=== PATIENT | female | born 1995 | race Caucasian/White ===

== ENCOUNTER 2016-12-15 21:12 | Emergency (ER) | payer OTHER ==
[2016-12-15 22:10] VITALS: BP 143/79
[2016-12-15] MEDS ORDERED: Albuterol 2.5 MG/3 ML NEB.SOL* (0.083%) INH ONE (22:20)
[2016-12-15] MEDS ORDERED: Ipratropium 0.5MG/2.5ML NEB* 0.5 MG/2.5 ML NEB.SOLN INH ONE (22:20)
--- NOTE | 2016-12-15 22:25 | UC ---
Respiratory Complaint HPI - HPI Summary HPI Summary: 21 yo female with wheezing x 4 days she is on chronic inhaled steroids she is on day four of prednisone (currently 20mg) no f/c - History of Current Complaint Chief Complaint: UCRespiratory Stated Complaint: ASTHMA Time Seen by Provider: 12/15/16 22:13 Hx Obtained From: Patient Hx Last Menstrual Period: 4 wks ago Onset/Duration: Sudden Onset, Lasting Days Timing: Constant Severity Initially: Moderate Severity Currently: Moderate Pain Intensity: 1 Pain Scale Used: 0-10 Numeric Character: Cough: Nonproductive Aggravating Factors: Exertion, Deep Breaths Alleviating Factors: Bronchodilator Associated Signs And Symptoms: Positive: Wheezing - Allergies/Home Medications Allergies/Adverse Reactions: Allergies Allergy/AdvReac Type Severity Reaction Status Date / Time Penicillins Allergy Severe Hives Verified 12/15/16 22:12 Home Medications: Home Medications Fluticasone-Salmeterol 100-50* [Advair Diskus 100-50*] 12/15/16 [History Confirmed 12/15/16] predniSONE TAB* [Deltasone TAB*] 12/15/16 [History Confirmed 12/15/16] PMH/Surg Hx/FS Hx/Imm Hx Endocrine History Of: Denies: Diabetes, Thyroid Disease Cardiovascular History Of: Denies: Cardiac Disorders, Hypertension Respiratory History Of: Reports: Asthma Denies: COPD GI/ History Of: Denies: Ulcer - Surgical History Surgical History: None - Family History Known Family History: Positive: Hypertension Negative: Cardiac Disease, Diabetes, Respiratory Disease - Social History Alcohol Use: Occasionally Alcohol Amount: SOCIAL Substance Use Type: None Smoking Status (MU): Never Smoked Tobacco Review of Systems Constitutional: Negative Skin: Negative Eyes: Negative ENT: Negative Respiratory: Cough Cardiovascular: Negative Gastrointestinal: Negative Genitourinary: Negative Motor: Negative Neurovascular: Negative Musculoskeletal: Negative Neurological: Negative Psychological: Negative All Other Systems Reviewed And Are Negative: Yes Physical Exam Triage Information Reviewed: Yes Appearance: Well-Appearing, No Pain Distress, Well-Nourished Vital Signs: Initial Vital Signs Temp 98.3 F 12/15/16 22:06 Pulse 92 12/15/16 22:06 Resp 18 12/15/16 22:06 BP 143/79 12/15/16 22:06 Pulse Ox 100 12/15/16 22:06 Vital Signs Reviewed: Yes Eyes: Positive: Conjunctiva Clear ENT: Positive: Hearing grossly normal, TMs normal. Negative: Pharyngeal erythema, Nasal congestion, Nasal drainage, Tonsillar swelling, Tonsillar exudate, Trismus, Muffled/hoarse voice Dental: Negative: Gross Decay/Caries @, Dental Fracture @, Cellulitis @ Neck: Positive: Supple, Nontender Respiratory: Positive: Lungs clear, Normal breath sounds, No respiratory distress, No accessory muscle use Cardiovascular: Positive: RRR, No Murmur Musculoskeletal: Positive: ROM Intact, No Edema Neurological Exam: Normal Neurological: Positive: Alert Psychological Exam: Normal Skin Exam: Normal UC Diagnostic Evaluation - Laboratory O2 Sat by Pulse Oximetry: 100 - normal/not hypoxic Respiratory Course/Dx - Course Course Of Treatment: feels markedly improved at d/c. better air movement. no wheezes - Differential Dx/Diagnosis Provider Diagnoses: acute bronchospasm Discharge - Discharge Plan Condition: Stable Disposition: HOME Prescriptions: Prednisone [Deltasone] 40 mg PO DAILY #4 tab Patient Education Materials: Bronchospasm (ED) Referrals: No Primary Care Phys,NOPCP [Primary Care Provider] - Additional Instructions: your BP here was a little elevated 143/79 I suspect it is due to being sick get it rechecked when you are well return in 4 days if not better take 2 20 mg prednisone tomorrow and the day after then resume your taper recheck for worsening symptoms
[2016-12-15] MEDS ORDERED: Fluconazole 100 MG TAB* TAB ONE (22:33)
[2016-12-15] MEDS ORDERED: predniSONE TAB* 20 MG PO ONE (22:53)
== END 2016-12-15 23:34 | disposition home or self-care (01) ==
LOC: UCEAST 21:12
DX: J98.01 Acute bronchospasm (principal); Z88.0 Allergy status to penicillin
CPT/HCPCS: 99212; A9270-GY; G0463; J7512; J7644